=== PATIENT | female | born 1975 | race Caucasian/White ===

== ENCOUNTER → 2024-06-07 | Outpatient (CLI) | payer MEDICAID, SELFPAY ==
[2024-06-07 10:30] LABS: Basophils # (Auto) 0.1 Thou/mm3 (0.0-0.2); Basophils % (Auto) 1 % (0-2.5); Eosinophils # (Auto) 0.1 Thou/mm3 (0.0-0.5); Eosinophils % (Auto) 3 % (0-10); Hematocrit 38.2 % (36.0-46.0); Hemoglobin 12.1 g/dL (12.0-16.0); Immature Granulocytes % (Auto) 0 % (0-0); Immature Granulocytes Auto 0.01 Thou/mm3 (0.00-0.00); Lymphocytes # (Auto) 1.6 Thou/mm3 (1.0-4.8); Lymphocytes % (Auto) 34 % (10-50); Mean Corpuscular HGB Conc 31.7 g/dl (31.0-37.0); Mean Corpuscular Hemoglobin 26.5 pg (25.0-35.0); Mean Corpuscular Volume 84 fL (80-100); Monocytes # (Auto) 0.4 Thou/mm3 (0.0-0.8); Monocytes % (Auto) 8 % (0-12); Neutrophils # (Auto) 2.6 Thou/mm3 (1.8-7.7); Neutrophils % (Auto) 54 % (37-80); Nucleated Red Blood Cell % 0 /100 WBC (0); Platelet Count 290 Thou/mm3 (140-440); RDW Standard Deviation 40.2 fL (36.4-46.3); Red Blood Count 4.56 Miln/mm3 (4.00-5.20); White Blood Count 4.8 Thou/mm3 (3.6-11.0)
[2024-06-07 10:47] LABS: Glucose Estimated Average 114 mg/dL (80-131); Hemoglobin A1C 5.6 % Hgb (4.8-6.0)
[2024-06-07 11:14] LABS: Alanine Aminotransferase 22 U/L (10-49); Albumin, Serum 4.8 gm/dL (3.5-5.0); Albumin/Globulin Ratio 2.1 (1.2-2.2); Alkaline Phosphatase 71 U/L (46-116); Anion Gap 9 (7-16); BUN/Creatinine Ratio 20 Ratio (12-20); Bilirubin,Total 0.3 mg/dL (0.3-1.2); Blood Urea Nitrogen 12 mg/dL (9-23); Calcium 9.4 mg/dL (8.3-10.6); Calcium (Corrected) 9.4 mg/dL (8.5-10.1); Carbon Dioxide 29.3 mMol/L (20.0-31.0); Cardiac Risk Estimate 2.5 RATIO (3.7-5.6); Chloride 101 mMol/L (98-107); Cholesterol 213 mg/dL (132-200); Creatinine (Component) 0.6 mg/dL (0.6-1.3); Globulin 2.3 gm/dL (2.3-3.5); Glucose 86 mg/dL (74-106); HDL Cholesterol 86 mg/dL (40-60); LDL Cholesterol,Calculated 114 mg/dL (0-130); Osmolality,Calculated 276 (275-295); Sodium 139 mMol/L (136-145); Thyroid Stimulating Hormone 3.53 uIU/mL (0.55-4.78); Total Protein 7.1 gm/dL (5.7-8.2); Triglycerides 66 mg/dL (30-150); eGFR > 60 See Note
[2024-06-07 11:34] LABS: Aspartate Amino Transferase 22 U/L (0-34)
[2024-06-07 11:42] LABS: Syphilis Nonreactive (Nonreactive)
[2024-06-07 12:01] LABS: Follicle Stimulating Hormone 95.82 mIU/mL (See Note); Hepatitis A Antibody IgM Non Reactive (Non React); Hepatitis B Core Antibody IgM Non Reactive (Non React); Hepatitis B Surface Antigen Non Reactive (Non React); Hepatitis C Antibody Non Reactive (Non React)
[2024-06-07 13:17] LABS: Chlamydia trachomatis PCR Negative (Not Detect); Neisseria Gonorrhoeae DNA PCR Negative (Not Detect); Trichomonas Negative (Negative)
[2024-06-12 11:33] LABS: HIV (1&2) Antibody Rapid Non-Reactive
[2024-06-16 06:37] LABS: Estradiol, Ultrasensitive* 9 pg/mL; Prolactin* 8.8 ng/mL; Testosterone,Total* 9 ng/dL (2-45)
== END | disposition home or self-care (01) ==
LOC: COPL 09:08
PROVIDERS: PCP Internal Medicine; Referring Provider Internal Medicine; Visit Provider Internal Medicine
DX: E78.49 Other hyperlipidemia (principal); N95.1 Menopausal and female climacteric states; R53.83 Other fatigue; Z11.3 Encounter for screening for infections with a predominantly sexual mode of transmission; Z79.899 Other long term (current) drug therapy
CPT/HCPCS: 36415; 80053; 80061; 80074; 82670; 83001; 83036; 84146; 84403; 84443; 85025; 86703; 86780; 87491; 87591; 87661

== ENCOUNTER 2024-12-14 01:39 | Emergency (ER) | payer MEDICAID, SELFPAY ==
[2024-12-14 01:42] VITALS: BP 98/62; PULSE 69; RESP 19; TEMP 36.6; O2SAT 100; BMI 23.3
[2024-12-14] MEDS: DICYCLOMINE 10 MG CAPSULE PO (02:32)
[2024-12-14] MEDS: ONDANSETRON ODT 4 MG TABRAP PO (02:33)
--- NOTE | 2024-12-14 02:36 | PD.EDNV ---
Nausea/Vomit./Diarrhea-RME/HPI General Chief complaint: Flu Like Symptoms Stated complaint: FLU LIKE SYMPTOMS Time Seen by Provider: 12/14/24 02:23 Arrival date/time: 12/14/24 01:39 49F with history of GERD and mild MVP presents to ED with several hours of N/V, body aches, and non-bloody diarrhea, as well as some lightheadedness, paresthesia, and fatigue. Patient denies URI symptoms and focal pain including ab pain. Limitations: no limitations Related Data Home Medications ?Medication ?Instructions ?Recorded ?Confirmed fexofenadine 180 mg tablet 180 mg PO QDAY 03/13/18 03/13/18 (Shahana Allergy) fluticasone furoate 27.5 1 spray intranasal QDAY 03/13/18 03/13/18 mcg/actuation nasal spray,suspension (Flonase Sensimist) metoprolol succinate 50 mg 50 mg PO QDAY 03/13/18 03/13/18 tablet,extended release 24 hr (Toprol XL) pantoprazole 40 mg tablet,delayed 40 mg PO QDAY 03/13/18 03/13/18 release sucralfate 1 gram tablet 1 gm/hr PO QDAY 03/13/18 03/13/18 Previous Rx's ?Medication ?Instructions ?Recorded ferrous sulfate 325 mg (65 mg 325 mg PO QDAY #90 tabs 03/13/18 iron) tablet (FerrouSul) ondansetron 4 mg disintegrating 4 mg PO Q8H PRN nausea and 12/14/24 tablet vomiting #14 tabs Allergies Allergy/AdvReac Type Severity Reaction Status Date / Time No Known Allergies Allergy Verified 12/14/24 01:42 Review of Systems Review of Systems Systems Reviewed: All systems reviewed, normal except as documented Constitutional Constitutional: Reports system reviewed and no additional complaints, except as documented, Reports as per HPI, Reports fatigue, Denies fever(s) and Denies headache(s) ENT Ears, Nose, Mouth, and Throat: Reports as per HPI, Denies disequilibrium, Denies headache(s) and Reports other (lightheadedness) Cardiovascular Cardiovascular: Reports system reviewed and no additional complaints, except as documented, Denies chest pain and Denies dyspnea Respiratory Respiratory: Reports system reviewed and no additional complaints, except as documented, Denies cough and Denies dyspnea Gastrointestinal Gastrointestinal: Reports system reviewed and no additional complaints, except as documented, Reports as per HPI, Denies abdominal pain, Reports diarrhea, Reports nausea and Reports vomiting Musculoskeletal Musculoskeletal: Reports tingling Neurologic Neurologic: Reports system reviewed and no additional complaints, except as documented, Reports as per HPI, Denies confusion, Denies disequilibrium, Denies headache(s) and Reports tingling Psychiatric Psychiatric: Denies confusion Endocrine Endocrine: Reports fatigue Past Medical History Past Medical History CARDIAC: Positive Cardiac Disorders (mitral valve prolapse); Negative Congestive Heart Failure RESPIRATORY: Negative Chronic Obstructive Pulmonary Disease (COPD) GASTROINTESTINAL: Positive Gastroesophageal Reflux Disease GENITOURINARY: Negative Renal Disease ENDOCRINE: Negative Diabetes Mellitus Type 1 or Diabetes Mellitus Type 2 Social History SMOKING STATUS: Never smoker ED Exam General Limitations: Present no limitations General appearance: Present alert, in no apparent distress and anxious Head Head exam: Present atraumatic Eye Eye exam: Present normal appearance, PERRL and EOMI ENT ENT exam: Present normal exam, normal oropharynx and mucous membranes moist Neck Neck exam: Present normal inspection, full ROM and trachea midline Chest Chest inspection: Present normal inspection and symmetric chest wall rise Respiratory Respiratory exam: Present normal lung sounds bilaterally Cardiovascular Cardiovascular exam: Present regular rate, normal rhythm and normal heart sounds Abdominal Exam Abdominal exam: Present soft and normal bowel sounds Extremities Exam Extremities exam: Present normal inspection and full ROM Back Exam Back exam: Present normal inspection and full ROM Neurological Exam Neurological exam: Present alert, oriented X3 and CN II-XII intact Psychiatric Psychiatric exam: Present normal affect and normal mood Skin Skin exam: Present warm, dry, intact and normal color Course Quality Measures none Orders Category Date Time Status Bedside COVID-19 Antigen Test NOW Care 12/14/24 02:23 Completed Bedside Influenza A&B Antigen Test NOW Care 12/14/24 02:23 Completed CBC Stat Lab 12/14/24 02:46 Completed CMP [Comprehensive Metabolic Panel] Stat Lab 12/14/24 02:46 Completed Lactate (Lactic Acid) Stat Lab 12/14/24 02:46 Completed Lipase Stat Lab 12/14/24 02:46 Completed Mag [Magnesium] Stat Lab 12/14/24 02:46 Completed Procalcitonin Stat Lab 12/14/24 02:46 Completed Urinalysis, C/S if Indicated Stat Lab 12/14/24 02:45 Completed Dicyclomine [Bentyl] Med 12/14/24 02:24 Discontinued 10 mg PO X1 ONE Ondansetron Odt [Zofran Odt] Med 12/14/24 02:23 Discontinued 4 mg PO X1 ONE Vital Signs Vital signs: Vital Signs Temperature 97.8 F 12/14/24 01:42 Pulse Rate 69 12/14/24 01:42 Respiratory Rate 19 12/14/24 01:42 Blood Pressure 98/62 12/14/24 01:42 Pulse Oximetry (%) 100 12/14/24 01:42 Oxygen Delivery Method Room Air 12/14/24 01:42 O2 at 100% on RA and WNLs Nausea/Vomiting/Diarrhea MDM Narrative MDM Narrative:: 49F with history of GERD and mild MVP presents to ED with several hours of N/V, body aches, and non-bloody diarrhea, as well as some lightheadedness, paresthesia, and fatigue. There is also some ab cramping that comes in waves. Patient denies URI symptoms and focal pain including ab pain. Physical exam reveals uncomfortable-appearing female. No ab tenderness. Normal WOB. Speech normal. Gait normal. Patient is afebrile, alert, but mildly anxious. Moderate leukocytosis. CMP unremarkable. Lipase mildly elevated, but it has been higher for her in the past for non-pancreatitis complaints. Mag normal. UA no gross UTI or dehydration. Likely viral gastroenteritis. Meds and securities counselor given. Through shared decision-making, no CT given no ab tenderness, symptoms for only several hours, and patient didn't want to wait anymore. Patient data External records reviewed:: [facility] previous records Clinical information provided by:: patient Social determinants that could affect healthcare access:: none Patient has the following chronic illnesses:: GERD and mild MVP How is presenting disease/condition affected by chronic disease/condition?: exacerbated by Evaluation data The following diagnostics were reviewed and interpreted by me:: lab results Lab and/or radiology exams considered but not ordered:: ordered Interpretation Summary: above Medications / Prescriptions Medications / Prescriptions considered but not ordered:: ordered Medication administrations:: Medication Administration History Discontinued Medications Dicyclomine HCl (Dicyclomine 10 Mg Capsule) 10 mg PO X1 ONE Stop: 12/14/24 02:25 Last Admin: 12/14/24 02:32 Dose: 10 mg Documented By: EZIO Ondansetron HCl (Ondansetron Odt 4 Mg Tabrap) 4 mg PO X1 ONE; Protocol Stop: 12/14/24 02:24 Last Admin: 12/14/24 02:33 Dose: 4 mg Documented By: EZIO above Consultations Consultation(s) initiated? (list below): No Diagnosis Nausea Differential Diagnosis: traveler's diarrhea, food poisoning, gastroenteritis, clostridium difficile infection, drug-induced nausea and vomiting and dehydration Most likely diagnosis given after review of the tests above:: gastroenteritis Admission Indicated Admission indicated?: not indicated Admission Request Was there a request for admission?: No Disposition Plan Disposition Plan: Discharge Discharge Attestation Discharge Attestation: The patient and all family members were given an opportunity to ask questions and understood the discharge instructions. Discharge instructions specifically effects, indications for sooner follow up or return to the emergency department, and the expected course of current diagnosis. Patient condition: Stable Discharge Plan Plan Patient Disposition: HOME (Self Care) Discharge Disposition comment: Stable Prescriptions/Referrals Prescriptions/Med Rec: New ondansetron 4 mg tablet,disintegrating 4 mg PO Q8H PRN (Reason: nausea and vomiting) Qty: 14 0RF No Action metoprolol succinate [Toprol XL] 50 mg Tablet Extended Release 24 Hr 50 mg PO QDAY sucralfate 1 gram Tablet 1 gm/hr PO QDAY fexofenadine [Shahana Allergy] 180 mg Tablet 180 mg PO QDAY pantoprazole 40 mg Tablet,Delayed Release (Dr/Ec) 40 mg PO QDAY fluticasone furoate [Flonase Sensimist] 27.5 mcg/actuation Levan,Suspension 1 spray INTRANASAL QDAY ferrous sulfate [FerrouSul] 325 mg (65 mg iron) tablet 325 mg PO QDAY Qty: 90 0RF Referrals: Luis Vargas MD [Primary Care Provider] - In 1 week Problem List Clinical Impression: Gastroenteritis Patient/Caregiver Discharge Instructions Education Materials: ED Diarrhea, Viral (Adult) Additional Instructions: Please follow-up with PCP within 24-48 hours and return immediately if symptoms worsen. Keep hydrated. Advance diet as tolerated. Tylenol works better for this type of pain rather than NSAIDs. Print Language: Polish Stand Alone Forms: Work/School Release, Patient Portal Info Letter PA/ALYSSIA Supervising Physician PA/PREP ROOM SUPERVISOR Supervising Physician: Dr. Gudino
[2024-12-14 02:51] LABS: Collection Type, Urine Clean Catch; RBC,Urine 0 /hpf (0-3); WBC,Urine 0 /hpf (0-5)
[2024-12-14 02:52] LABS: Lactate (Lactic Acid) 1.8 mMol/L (0.4-2.0)
[2024-12-14 02:53] LABS: Basophils # (Auto) 0.1 Thou/mm3 (0.0-0.2); Basophils % (Auto) 0 % (0-2.5); Eosinophils # (Auto) 0.0 Thou/mm3 (0.0-0.5); Eosinophils % (Auto) 0 % (0-10); Hematocrit 34.7 % (36.0-46.0); Hemoglobin 10.9 g/dL (12.0-16.0); Immature Granulocytes Auto 0.04 Thou/mm3 (0.00-0.00); Lymphocytes # (Auto) 0.7 Thou/mm3 (1.0-4.8); Lymphocytes % (Auto) 5 % (10-50); Mean Corpuscular HGB Conc 31.4 g/dl (31.0-37.0); Mean Corpuscular Hemoglobin 26.1 pg (25.0-35.0); Mean Corpuscular Volume 83 fL (80-100); Monocytes # (Auto) 0.7 Thou/mm3 (0.0-0.8); Monocytes % (Auto) 4 % (0-12); Neutrophils # (Auto) 14.0 Thou/mm3 (1.8-7.7); Neutrophils % (Auto) 90 % (37-80); Nucleated Red Blood Cell # 0.00 Thou/mm3 (0.00-0.00); Nucleated Red Blood Cell % 0 /100 WBC (0); Platelet Count 271 Thou/mm3 (140-440); RDW Standard Deviation 42.3 fL (36.4-46.3); Red Blood Count 4.17 Miln/mm3 (4.00-5.20); White Blood Count 15.5 Thou/mm3 (3.6-11.0)
[2024-12-14 03:01] LABS: Bacteria,Urine Rare; Bilirubin,Urine Negative (Negative); Blood,Urine Negative (Negative); Clarity,Urine Clear (Clear/Hazy); Color,Urine Yellow (Lt Yel-Yel); Culture Indicated,Urine Not Indicated; Glucose, Urine Trace (Negative); Ketones,Urine Negative (Negative); Leukocyte Esterase,Urine Negative (Negative); Nitrite,Urine Negative (Negative); PH,Urine 7.5 (5.0-7.0); Protein,Urine 1+ (Neg - Trace); Specific Gravity,Urine 1.021 (1.001-1.035); Squamous Epithelial Cell,Urine 1 /hpf (0-5); Urobilinogen,Urine Negative mg/dL (0.0-1.0)
[2024-12-14 03:51] LABS: Alanine Aminotransferase 13 U/L (10-49); Albumin, Serum 4.2 gm/dL (3.5-5.0); Albumin/Globulin Ratio 2.0 (1.2-2.2); Alkaline Phosphatase 56 U/L (46-116); Anion Gap 13 (7-16); Aspartate Amino Transferase 31 U/L (0-34); BUN/Creatinine Ratio 15 Ratio (12-20); Bilirubin,Total 0.3 mg/dL (0.3-1.2); Blood Urea Nitrogen 9 mg/dL (9-23); Calcium 8.9 mg/dL (8.3-10.6); Calcium (Corrected) 8.9 mg/dL (8.5-10.1); Carbon Dioxide 23.9 mMol/L (20.0-31.0); Chloride 105 mMol/L (98-107); Creatinine (Component) 0.6 mg/dL (0.6-1.3); Estimated Creatinine Clearance 105.0 mL/min (>60); Globulin 2.1 gm/dL (2.3-3.5); Glucose 122 mg/dL (74-106); Lipase 63 U/L (12-53); Magnesium 1.6 mg/dL (1.6-2.6); Osmolality,Calculated 282 (275-295); Potassium 3.9 mMol/L (3.4-5.1); Procalcitonin 0.11 ng/ml (0.0-0.49); Sodium 142 mMol/L (136-145); Total Protein 6.3 gm/dL (5.7-8.2); eGFR > 60 See Note
[2024-12-14 04:30] VITALS: BP 116/64; PULSE 84; RESP 16; TEMP 37; O2SAT 98
== END 2024-12-14 04:51 | disposition home or self-care (01) ==
PROVIDERS: Physician Assistant; Emergency Provider Emergency Medicine; PCP Internal Medicine
DX: K52.9 Noninfective gastroenteritis and colitis, unspecified (principal)
CPT/HCPCS: 36415; 80053; 81001; 83605; 83690; 83735; 84145; 85025; 87400; 87811; 99283; Q0162; A9270

== ENCOUNTER 2025-04-16 08:40 | Outpatient (AMB) | payer MEDICAID, SELFPAY ==
[2025-04-16 09:02] VITALS: BP 132/81; PULSE 71; RESP 18; TEMP 36.6; O2SAT 97; BMI 23.6
--- NOTE | 2025-04-16 09:02 | GYNCLNT_ITS ---
Vital Signs 04/16/25 09:02 Height 1.68 m Height Method Stated Weight 66.848 kg Weight Measurement Method Standing Scale BMI 23.6 BP 132/81 H Blood Pressure Source Automatic Cuff Blood Pressure Location Right Upper Arm Position Sitting Respiration 18 Pulse 71 Pulse Source Monitor Temp 97.9 F Temp Source Temporal Artery Scan Pulse Oximetry (%) 97 Oxygen Delivery Method Room Air Allergies/Home Meds Allergies & Medications Allergies No Known Allergies Allergy (Verified 04/16/25 09:03) Medication Reconciliation ferrous sulfate 325 mg (65 mg iron) tablet (FerrouSul) 325 mg PO QDAY #90 tabs 03/13/18 [Rx Confirmed 04/16/25] fexofenadine 180 mg tablet (Shahana Allergy) 180 mg PO QDAY 03/13/18 [History Confirmed 04/16/25] fluticasone furoate 27.5 mcg/actuation nasal spray,suspension (Flonase Sensimist) 1 spray intranasal QDAY 03/13/18 [History Confirmed 04/16/25] metoprolol succinate 50 mg tablet,extended release 24 hr (Toprol XL) 50 mg PO QDAY 03/13/18 [History Confirmed 04/16/25] pantoprazole 40 mg tablet,delayed release 40 mg PO QDAY 03/13/18 [History Confirmed 04/16/25] sucralfate 1 gram tablet 1 gm/hr PO QDAY 03/13/18 [History Confirmed 04/16/25] ondansetron 4 mg disintegrating tablet 4 mg PO Q8H PRN nausea and vomiting #14 tabs 12/14/24 [Rx Confirmed 04/16/25] estradiol 2 mg tablet 2 mg PO QDAY 12 weeks #90 tabs 04/16/25 [Rx] medroxyprogesterone 2.5 mg tablet (Provera) 2.5 mg PO QDAY #90 tabs 04/16/25 [Rx] Intake Visit Data Collection New Patient or Established: Established Patient (seen at [facility] within 3 years) Reason for Visit:: REFERRAL MENOPAUSE Seen by Clinical Staff ONLY (RN/MA): No Pharmacy Operations Specialist Required: No Do You Feel Safe at Home: Yes Authorities Contacted: N/A PCP or OBGYN visit in last 3 months: No Hx Now: No Are you currently on any form of Control: No Last menstrual period: 03/10/25 Pain Present Currently: No Pain Scale Used: Hidalgo-Cordero/Numerical Pain scale:: 0 Smoking Status Smoking Status: Never smoker Immunizations Flu Vaccine in the Last 12 Months: No Flu Vaccine Exclusion Criteria: No Exclusion Criteria 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 Menstrual regularity: irregular Flow: heavy Monthly: Yes How many days does period last: 10 Age at menarche: 11 Menopausal: Yes Currently sexually active: Yes Additional comments: on cyclic HRT x 6 months 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 1. Little interest or pleasure in doing things: not at all 2. Feeling down, depressed, or hopeless: not at all Total score: 0 PHQ-9 3. Trouble falling or staying asleep, or sleeping too much: Not at all 4. Feeling tired or having little energy: Not at all 5. Poor appetite or overeating: Not at all 6. Feeling bad about yourself - or that you are a failure or have let yourself or your family down: Not at all 7. Trouble concentrating on things, such as reading the newspaper or watching television: Not at all 8. Moving or speaking so slowly that other people could have noticed? - Or the opposite - being so fidgety or restless that you have been moving around a lot more than usual: not at all 9. Thoughts that you would be better off or of hurting yourself in some way: Not at all Total score: 0 If you checked off any problems, how difficult have these problems made it for you to do your work, take care of things at home, or get along with other people?: not difficult at all Source: Developed by Drs. Marcin Bynum, Lisa Boo, Harrison Fraser and colleagues, with an educational raza from [employer]. Depression screen completed yes Social History Living Situation History Marital Status: Lives With: Family Housing: House Tobacco History Smoking Status: Never smoker Second Hand Smoke Exposure: No Alcohol History Alcohol Intake: Never Domestic Abuse History Do You Feel Safe at Home: Yes History of Present Illness HPI Narrative 49 years P2 referred for menopausal symptoms and HRT. She has h/o depression and anxiety , states last Mammogram and LPS were done in 2023 . She is currently on Estradiol 2 mgm po q day and provera 10 mgm po x 10 days each month . She would like to not have periods , she did try the combination therapy in the past but felt it made her retain water and gain weight . She does not remember when she went into menopause . She is still getting withdrawal bleeding on the current HRT regimen which is normal Review of Systems Review of Systems Systems Reviewed: All systems reviewed, normal except as documented Exam Narrative Physical exam: Alert and oriented x 3 no shortness of breath Pain no chest pain no palpitations Chest no use of accessory muscles CVS regular rate and rhythm No CVAT General General Appearance: alert, cooperative and anxious Results Objective Laboratory: no labs sent / prescription bottles examined estradiol 2 mgm and Provera 10 mgm Office Procedures [facility] LOC & Office Proc's Nursing/Assessment Patient Status: Established Patient OB Clinic Nursing Assessment: Medication Reconciliation, Update PMH in EMR and Vital Signs OB Clinic Coordination of Care: Complex Care and Chronic Disease 1-5, Education Complex Pt/Fam, Consent,records obtained, informed consent, Lab and Imaging orders, Results/Orders obtained and Staff clarify orders Established Patient Charge Established Patient Point Assignment: 110 Established Patient Point Charge: EP Level 3 (80-115) Assessment & Plan Diagnosis / Problem List (1) Menopausal disorder: Status: Acute (2) Hormone replacement therapy (HRT): Status: Acute Plan start on Continous HRT with 5 mgm po provera and 2 mgm po estradiol and Telephone follow up on labs ordered today FSH,LH, Estradiol, Progesterone, CMP., CBC and TSH . patient if does well on it will decrease Provera to 2.5 mgm on follow up in 6 to 12 weeks /telephone follow up in 6 weeks on lab results and medication efficacy and In person follow up in 12 weeks . Patient is aware that we are not able to provide routine pap and Mammogram services at our facility due to restricted resources , but she needs to have an annual Mammogram with her provider while on HRT . R/B and other options for HRT discussed. Her hot flashes are better but she still needs emotional hormonal support and does not wish to stop HRT and is already seeing a therapist. Thank you Dr Luis Vargas for the referral
== END 2025-04-16 09:54 | disposition home or self-care (01) ==
LOC: HODSOBC 08:40
PROVIDERS: PCP Internal Medicine; Referring Provider Internal Medicine; Supervising Provider Obstetrics & Gynecology; Visit Provider Obstetrics & Gynecology
DX: N95.1 Menopausal and female climacteric states (principal); R23.2 Flushing; Z79.890 Hormone replacement therapy
CPT/HCPCS: 99213; G0463